=== PATIENT | male | born 1970 | race Caucasian/White ===

== ENCOUNTER 2017-06-12 08:13 | Observation (INO) | payer OTHER ==
[2017-06-12 10:28] LABS: ADD MAN DIFF? NO
[2017-06-12 10:38] LABS: BASOPHILS % 0.7 % (0.0-2.0); EOSINOPHILS # 0.2 10^3/ul (0.0-0.5); HEMATOCRIT 44.6 % (42.0-52.0); HEMOGLOBIN 15.3 g/dl (14.0-18.0); LYMPHOCYTES # 1.9 10^3/ul (0.8-2.9); LYMPHOCYTES % 34.5 % (15.0-51.0); MEAN CORPUSCULAR HEMOGLOBIN 29.8 pg (29.0-33.0); MEAN CORPUSCULAR HGB CONC 34.3 g/dl (32.0-37.0); MEAN CORPUSCULAR VOLUME 86.8 fl (82.0-101.0); MEAN PLATELET VOLUME 11.5 fl (7.4-10.4); MONOCYTE # 0.3 10^3/ul (0.3-0.9); MONOCYTES % 5.7 % (0.0-11.0); NEUTROPHIL # 3.1 10^3/ul (1.6-7.5); NEUTROPHILS % 55.7 % (39.0-77.0); PLATELET COUNT 212 10^3/UL (140-415); RED BLOOD COUNT 5.14 10^6/ul (4.70-6.10); RED CELL DISTRIBUTION WIDTH 12.5 % (11.5-14.5)
[2017-06-12 10:38] LABS: WHITE BLOOD COUNT 5.6 10^3/ul (4.8-10.8)
[2017-06-12] MEDS: NITROGLYCERIN 2% 1 GM OINT PKT TD (10:41)
[2017-06-12] MEDS: morphine 4 MG/ML VIAL IV (10:42)
[2017-06-12] MEDS: ASPIRIN 325 MG TAB PO (10:42)
[2017-06-12] MEDS: ONDANSETRON 4 MG INJ IV (10:42)
[2017-06-12 10:57] LABS: ALANINE AMINOTRANSFERASE 54 IU/L (13-69); ALBUMIN 4.9 g/dl (3.3-4.9); ALBUMIN/GLOBULIN RATIO 1.25; ALKALINE PHOSPHATASE 76 IU/L (42-121); ANION GAP 15 (8-16); ASPARTATE AMINO TRANSFERASE 28 IU/L (15-46); BILIRUBIN,INDIRECT 0.3 mg/dl (0-1.1); BILIRUBIN,TOTAL 0.3 mg/dl (0.2-1.3); BLOOD UREA NITROGEN 13 mg/dl (7-20); CALCIUM 10.1 mg/dl (8.4-10.2); CARBON DIOXIDE 29 mmol/L (21-31); CHLORIDE 103 mmol/L (97-110); CREATININE 0.84 mg/dl (0.61-1.24); GLUCOSE 97 mg/dl (70-220); POTASSIUM 4.4 mmol/L (3.5-5.1); SODIUM 143 mmol/L (135-144); TOTAL PROTEIN 8.8 g/dl (6.1-8.1)
[2017-06-12 11:02] LABS: INR 0.93; PROTIME 12.5 Sec (11.9-14.9)
[2017-06-12 11:03] LABS: PARTIAL THROMBOPLASTIN TIME 31.5 Sec (25.0-35.0)
[2017-06-12 11:08] LABS: TROPONIN-I < 0.012 ng/ml (0.00-0.12)
[2017-06-12] MEDS ORDERED: ONDANSETRON 4 MG INJ IV ×2 (13:00→17:30)
[2017-06-12] MEDS ORDERED: ACETAMINOPHEN 325 MG TAB PO ×2 (13:00→17:30)
[2017-06-12] MEDS: SOD CHLORIDE 0.9% 1,000 ML IV (15:27)
[2017-06-12] MEDS ORDERED: NACL 0.9% 3 ML SYG IV (17:30)
[2017-06-12] MEDS ORDERED: HYDROCODONE/APAP (5/325) TAB PO (17:30)
[2017-06-12] MEDS ORDERED: morphine 2 MG INJ IV (17:30)
[2017-06-12] MEDS ORDERED: DOCUSATE SODIUM 100 MG CAP PO (17:30)
[2017-06-12] MEDS ORDERED: ZOLPIDEM 5 MG TAB PO (17:30)
[2017-06-12 19:40] LABS: CREATINE KINASE 91 IU/L (23-200)
[2017-06-12] MEDS: ALBUTEROL/IPRATROPIUM (NEB) 3 ML AMP HHN (19:47)
[2017-06-12 19:52] LABS: CK INDEX 0.8
[2017-06-12 19:59] LABS: CK-MB 0.72 ng/ml (0.0-2.4); TROPONIN-I < 0.012 ng/ml (0.00-0.12)
[2017-06-12] MEDS: METOPROLOL 25 MG TAB PO (21:00)
[2017-06-12] MEDS: FAMOTIDINE 20 MG INJ IV (21:00)
[2017-06-12] MEDS: ATORVASTATIN 20 MG TAB PO (21:00)
[2017-06-13] MEDS: ALBUTEROL/IPRATROPIUM (NEB) 3 ML AMP HHN ×3 (02:15→13:57)
[2017-06-13 06:17] LABS: CHOLESTEROL 246 mg/dl (100-200)
[2017-06-13 06:17] LABS: CHOL/HDL RATIO 8.2 RATIO; HDL CHOLESTEROL 30 mg/dl (27-67); LDL CHOLESTEROL,CALCULATED 150 mg/dl; TRIGLYCERIDES 330 mg/dl (0-149)
[2017-06-13 07:20] LABS: FREE THYROXINE INDEX (Calc) 2.48 ug/ml (0.65-3.89)
[2017-06-13 07:31] LABS: T3 UPTAKE 27.3 % (23.5-40.5); T4 (THYROXINE) 9.1 ug/dl (5.5-11.0)
[2017-06-13] MEDS: ASPIRIN 81 MG TAB PO (09:01)
[2017-06-13] MEDS: LOSARTAN 25 MG TAB PO (09:01)
[2017-06-13] MEDS: METOPROLOL 25 MG TAB PO (09:04)
[2017-06-13] MEDS: FAMOTIDINE 20 MG INJ IV (09:05)
[2017-06-13] MEDS: INFLUENZA VIRUS VACCINE 0.5 ML (DISPENSING) IM* (09:10)
[2017-06-13 09:37] LABS: HEMOGLOBIN A1C 5.4 % (0-5.9)
[2017-06-13] MEDS: REGADENOSON 0.4 MG/5 ML SYG (11:25)
== END 2017-06-13 20:13 | disposition home or self-care (01) ==
LOC: E/R 08:13 → MS3 12:38
DX: R07.9 Chest pain, unspecified (principal); I10 Essential (primary) hypertension; I25.10 Atherosclerotic heart disease of native coronary artery without angina pectoris; Z95.5 Presence of coronary angioplasty implant and graft; E78.00 Pure hypercholesterolemia, unspecified; Z79.82 Long term (current) use of aspirin; F17.210 Nicotine dependence, cigarettes, uncomplicated; Z23 Encounter for immunization
CPT/HCPCS: 36415; 71045; 78452; 80053; 80061; 82550; 82553; 83036; 84436; 84479; 84484; 85025; 85610; 85730; 90686; 93005; 93017; 93306; 94640; 94664; 96374; 96375; 99285-25